=== PATIENT | female | born 1955 | race Caucasian/White ===

== ENCOUNTER 2020-10-08 17:46 | Emergency (ER) | payer OTHER, BC, SELFPAY ==
--- NOTE | ~2020-10-08 | CT_ITS ---
EXAMINATION: CT lumbar spine wo con DATE: 10/08/2020 19:39 INDICATION: Low back pain TECHNIQUE: Computed tomography (CT) of the lumbar spine was performed without intravenous contrast. T he dose-length product (DLP) was 487.63 mGy-cm. Iterative reconstruction was used. COMPARISON: None FINDINGS: Bone alignment is normal. There is no fracture. The vertebral body heights are maintained. The prevertebral soft tissues are normal. Calcified atherosclerosis is noted. There are mild posterio r disc bulges in the lower lumbar spine. IMPRESSION: 1. Mild lumbar spondylosis without acute findings. Reviewed, dictated and finalized at location A.
--- NOTE | ~2020-10-08 | XR_ITS ---
EXAMINATION: XR shoulder RT min 2V INDICATION: Right shoulder pain TECHNIQUE: Four views of the right shoulder are submitted. COMPARISON: None FINDINGS: Normal alignment. No fracture. There is mild osteoarthritis of the glenohumeral and acromio clavicular joints. Soft tissues are unremarkable. IMPRESSION: 1. No acute osseous abnormality. Reviewed, dictated and finalized at location A.
--- NOTE | ~2020-10-08 | CT_ITS ---
EXAMINATION: CT cervical spine wo con DATE: 10/08/2020 19:39 INDICATION: Neck pain TECHNIQUE: Computed tomography (CT) of the cervical spine was performed without intravenous contrast. The dose-length product (DLP) was 166.86 mGy-cm. Automated exposure control and iterative reconstruc tion technique were employed. COMPARISON: None FINDINGS: There is no fracture, dislocation, or subluxation. The vertebral body heights and alignment are normal. There is mild loss of intervertebral disc space height at C4-5. The odontoid is intact. The prevertebral soft tissues are normal. Small degenerative osteophytes project from the anterior en dplates of multiple vertebral bodies. IMPRESSION: 1. Mild cervical spondylosis without acute findings. Reviewed, dictated and finalized at location A.
[2020-10-08 17:48] VITALS: BP 171/71; PULSE 63; RESP 17; TEMP 36.6; O2SAT 100
[2020-10-08] MEDS: diazePAM INJ (*CRX) 10 MG/2 ML SYRINGE 5 MG IM (19:19)
[2020-10-08] MEDS: ACETAMINOPHEN 500 MG TABLET 1000 MG PO (19:19)
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
== END 2020-10-08 21:23 | disposition home or self-care (01) ==
PROVIDERS: Emergency Provider Emergency Medicine; PCP Internal Medicine
DX: S16.1XXA Strain of muscle, fascia and tendon at neck level, initial encounter (principal); V49.50XA Passenger injured in collision with unspecified motor vehicles in traffic accident, initial encounter; M06.9 Rheumatoid arthritis, unspecified
CPT/HCPCS: 72125; 72131; 73030; 96372; 99284; A9270; J3360

== ENCOUNTER 2020-11-09 09:34 | Outpatient (CLI) | payer OTHER, BC, SELFPAY ==
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
== END 2020-11-09 09:35 | disposition home or self-care (01) ==
DX: M54.6 Pain in thoracic spine (principal); M85.88 Other specified disorders of bone density and structure, other site
CPT/HCPCS: 72070

== ENCOUNTER 2021-09-29 08:06 | Emergency (ER) | payer BC, SELFPAY ==
--- NOTE | 2021-09-29 08:09 | ED.SKABFB ---
HPI - Skin/Abscess/Foreign Bdy General Chief complaint: Skin/Abscess/Foreign Body Stated complaint: poison michael Time Seen by Provider: 09/29/21 08:09 Source: patient Mode of arrival: ambulatory Limitations: no limitations History of Present Illness HPI narrative: Ms. Heredia is a 66-year-old female patient presenting to the clinic today with complaints of a possible poison michael. She reports she was cutting some brush last week and developed a rash to her right forearm. She reports that the rash was initially red, blistering, weeping, and itchy. States that her had also developed this rash and thinks it may be poison michael. She has been applying some Goldbond anti-itch cream to it and this has been helping with the itching however the rash seems to be spreading up her arm. First noticed the rash on Thursday. She denies any fever or chills MD complaint: rash Related Data Home Medications Medication Instructions Recorded Confirmed doxycycline hyclate 50 mg PO DAILY 09/29/21 09/29/21 folic acid 1 mg PO DAILY 09/29/21 09/29/21 levetiracetam 500 mg PO DAILY 09/29/21 09/29/21 methotrexate sodium 2.5 mg PO DAILY 09/29/21 09/29/21 Allergies Allergy/AdvReac Type Severity Reaction Status Date / Time No Known Allergies Allergy Mild Verified 09/29/21 08:10 Review of Systems Review of Systems: Pertinent positives per HPI. Patient denies any fever, chills, headache, visual changes, dizziness, cough, runny nose, sore throat, shortness of breath, chest pain, palpitations, nausea, vomiting, diarrhea, constipation, abdominal pain, or any urinary issues. [facility] Past Medical History Medical History History of rheumatoid arthritis History of rosacea Social History Social History Gender identity (if verbalized by the patient): Female Comments At the time of my signature, I reviewed and agree with the nursing past medical, surgical, social, and family history. There is no relevant family history pertinent to the patient complaint. Exam Narrative: General: Well-developed, well nourished, in no apparent distress Head: Normocephalic, atraumatic. Cardio: Regular rate and rhythm, s1 and s2 normal, no murmur appreciated. Resp: Clear to auscultation bilaterally, no rhonchi, rales, wheezing or rubs. Integumentary: [place], warm, and dry, intact without lesion, red mildly raised blister itchy rash to the right volar wrist that is spreading up her forearm, does have some yellow crusting over the rash Course Course Emergency Course: Portions of this record may have been created with voice recognition software. Level of Care: Express Care Visit Vital Signs Vital signs: Vital signs reviewed MDM - Skin/Abscess/Foreign Bdy MDM Narrative Medical decision making narrative: At the time of visit patient is resting comfortably on exam table. Has a red raised itchy blistery rash to the right volar wrist that is spreading up her forearm. She has been applying Goldbond anti-itch cream to the rash and now has some yellow crusting and she is concerned about infection. I suspect she has contact dermatitis to plant however she says she is not immunocompromised and is concerned about infection so I will go ahead and prescribe a prescription for some triamcinolone cream as well as some mupirocin cream to apply over the rash to prevent secondary infection. Supportive measures were discussed with patient and she voiced understanding of discharge instructions. Discharge Plan Discharge Clinical Impression: Dermatitis Patient Disposition: Home, Self-Care Condition: Stable Instructions: Antibiotic Form, Dermatitis (ED) Additional Instructions: Discussed patient's elevated blood pressure at the time of visit and recommend follow-up with primary care physician to have this reevaluated within the next week if symptoms persist.
[2021-09-29 08:18] VITALS: BP 171/86; PULSE 64; RESP 16; TEMP 37.1; O2SAT 99
== END 2021-09-29 08:28 | disposition home or self-care (01) ==
PROVIDERS: Emergency Provider Nurse Practitioner Family
DX: L30.9 Dermatitis, unspecified (principal)
CPT/HCPCS: 99213; G0463

== ENCOUNTER 2021-12-05 08:38 | Emergency (ER) | payer BC, SELFPAY ==
--- NOTE | ~2021-12-05 | XR_ITS ---
EXAMINATION: XR wrist RT min 3V DATE: 12/05/2021 08:56 INDICATION: Right wrist pain. TECHNIQUE: 4 views of right wrist were obtained. COMPARISON: None. FINDINGS: Bone alignment is normal. There is an impacted fracture deformity of distal radius. There i s 8 degrees dorsal angulation of the distal articular surface. Ulnar styloid is intact. There is mild osteoarthritis of triscaphe joint and third metacarpophalangeal joint. IMPRESSION: 1. Age indeterminant fracture deformity of distal radius. Reviewed, dictated and finalized at location A.
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
[2021-12-05] MEDS: oxyCODONE/ACETAMINOPHEN (*CRX) 5-325 MG TABLET 1 TABLET PO (09:25)
[2021-12-05 09:26] VITALS: BP 166/90; PULSE 68; RESP 16
== END 2021-12-05 09:25 | disposition home or self-care (01) ==
PROVIDERS: Emergency Provider Emergency Medicine
DX: S52.501A Unspecified fracture of the lower end of right radius, initial encounter for closed fracture (principal); M06.9 Rheumatoid arthritis, unspecified; V18.3XXA Person boarding or alighting a pedal cycle injured in noncollision transport accident, initial encounter; Y93.55 Activity, bike riding
CPT/HCPCS: 29125; 73110; 99284; A4565; A9270